=== PATIENT | female | born 1955 | race Caucasian/White ===

== ENCOUNTER 2021-06-09 13:35 | Outpatient (CLI) | payer OTHER ==
[~2021-06-09 13:35] MED LIST: Magnevist 469MG/ML 20 ML VIAL ONE
== END 2021-06-09 13:36 | disposition home or self-care (01) ==
LOC: MRI 13:35
PROVIDERS: ATTEND Student in an Organized Health Care Education/Training Program
DX: H90.3 Sensorineural hearing loss, bilateral (principal); R42 Dizziness and giddiness; H93.19 Tinnitus, unspecified ear; I67.82 Cerebral ischemia
CPT/HCPCS: 70553; A9579